=== PATIENT | female | born 2000 | race African-American/Black ===

== ENCOUNTER → 2019-06-30 | Outpatient (CLI) | payer OTHER ==
[~2019-06-30] VITALS: Ht 157.5 cm; Wt 69.0 kg
[~2019-06-30] MED LIST: LR 1,000 ML IV ONE; NITROFURANTOIN (MACROBID) 100 MG CAP PO ONE; PRENTAB9 PO
[2019-06-30 13:48] VITALS: BP 120/67
[2019-06-30 15:13] LABS: APPEARANCE, URINE CLOUDY (CLEAR); BACTERIA, URINE AUTO 2+ (NEGATIVE); BILIRUBIN, URINE AUTO NEGATIVE (NEGATIVE); BLOOD, URINE BLOOD 3+ (NEGATIVE); COLOR, URINE RED (YELLOW); GLUCOSE, URINE (UA) AUTO NEGATIVE (NEGATIVE); KETONE, URINE AUTO TRACE mg/dL (NEGATIVE); LEUKOCYTE ESTERASE, URINE AUTO 3+ (NEGATIVE); NITRITE, URINE AUTO NEGATIVE (NEGATIVE); PROTEIN, URINE AUTO 2+ mg/dL (NEGATIVE); RBC, URINE AUTO TNTC /HPF (0-3); SPECIFIC GRAVITY URINE AUTO 1.006 (1.002-1.035); SQUAMOUS EPITHELIAL CELL UR AU 0 /HPF (0-6); UROBILINOGEN, URINE AUTO 0.2 mg/dL (0.0-2.0); WBC, URINE AUTO TNTC /HPF (0-3)
[2019-06-30 15:19] VITALS: BP 105/55
== END ==
LOC: M LDO 13:39
PROVIDERS: ATTEND Advanced Practice Midwife
DX: O26.852 Spotting complicating pregnancy, second trimester (principal); O26.892 Other specified pregnancy related conditions, second trimester; R30.0 Dysuria; Z3A.22 22 weeks gestation of pregnancy
CPT/HCPCS: 59025; 81001; G0378; G0463

== ENCOUNTER 2019-10-30 10:18 | Inpatient (IN) | payer OTHER ==
[~2019-10-30] VITALS: Ht 157.5 cm; Wt 86.2 kg
[2019-10-30] VITALS (24 sets, daily range): BP systolic 115–167; BP diastolic 63–97
[~2019-10-30 10:18] MED LIST changes: -LR 1,000 ML IV ONE; -NITROFURANTOIN (MACROBID) 100 MG CAP PO ONE
[2019-10-30] MEDS ORDERED: LACTATED RINGER'S 1000 ML IV ONE (11:30)
[2019-10-30 11:51] LABS: HEMATOCRIT 40.2 % (36.0-47.0); MEAN CORPUSCULAR HEMOGLOBIN 27.4 pg (27.0-33.0); MEAN CORPUSCULAR HGB CONC 32.3 g/dl (32.0-36.5); MEAN CORPUSCULAR VOLUME 84.6 fl (80.0-96.0); PLATELET COUNT, AUTOMATED 251 10^3/uL (150-450); RED BLOOD COUNT 4.75 10^6/uL (4.00-5.40); WHITE BLOOD COUNT 12.9 10^3/uL (4.0-10.0)
[2019-10-30] MEDS ORDERED: FENTANYL 2MCG/ML ROPIVACAINE 0.2% IN 0.9% NACL 100ML IVBAG As Ordered ONE (12:46)
[2019-10-30] MEDS: LR 1,000 ML IV SCH ×2 (12:55→15:30)
[2019-10-30] MEDS ORDERED: REFRIGERATOR IV KEYS XX PRN (13:45)
[2019-10-30] MEDS ORDERED: ePHEDrine SULFATE 25 MG/5 ML(5MG/ML) SYRINGE IV PRN (13:45)
[2019-10-30] MEDS ORDERED: EPIDURAL/PCA KEYS XX PRN (13:45)
[2019-10-30] MEDS ORDERED: LACTATED RINGER'S 1000 ML IV PRN (13:45)
[2019-10-30] MEDS ORDERED: diphenhydrAMINE INJ 50MG/ML VIAL (J1200) IV PRN (13:45)
[2019-10-30] MEDS ORDERED: ONDANSETRON 4MG/2ML VIAL (J2405) IV PRN (13:45)
[2019-10-30] MEDS ORDERED: EPIDURAL COMMENT XX SCH (13:45)
[2019-10-30] MEDS ORDERED: NALOXONE INJ 0.4 MG/1 ML VIAL (J2310) IV PRN (13:45)
[2019-10-30] MEDS ORDERED: FENTANYL/ROPIVACAINE/NACL BAG 100 ML EPIDURAL SCH (13:45)
[2019-10-30] MEDS ORDERED: OXYTOCIN 30 UNITS IN 0.9% NaCl 500ML IV BAG (J2590) As Ordered ONE (15:00)
--- NOTE | 2019-10-30 16:07 | HPE ---
DATE OF ADMISSION: 10/30/2019 This lady is a 19-year-old 1, para 0, last menstrual period (LMP) 01/25/2019, estimated date of confinement (EDC) 11/01/2019 at 39 and 6 weeks of gestation with history of spontaneous rupture of membranes, clear liquor, contractions 2-4 minutes apart of moderate intensity. Labs are O positive, HIV negative, hepatitis negative, RPR negative, rubella immune, Varicella immune. Urine was negative. Gonorrhea and chlamydia are negative. One-hour glucose 103. GBS is negative. On examination, distressed female. Symphysis fundus height is 40, vertex occiput anterior (OA). Clear liquor, 1 cm, 100% effaced, anterior -3 station. Moderate intensity contractions. Category 1 strip. Blood pressure 115/79, respirations 18, pulse 95, and temperature 97.7, and there is no urine available. She has a category 1 strip. Normocephalic, atraumatic. Neck: Full range of motion. Pupils equal and reactive to light. Distal pulses symmetric. No evidence of deep vein thrombosis (DVT), pulmonary embolism (PE), or superficial phlebitis. Chest is clear bilaterally to bases. No wheezes or rhonchi. No costovertebral angle (CVA) tenderness. Four-quadrant bowel sounds are noted. No rashes, lesions, or pruritus. No tattoos. No arthralgia, myalgia. No complaint of joint pain. No complaint coughing, shortness of breath, or dyspnea on exertion. No bleeding. Neurologic complete. No urgency, frequency. No nausea, vomiting, diarrhea, or constipation. No diabetic issues. She has no GRAIN SPOUTER issues. Unremarkable past medical and surgical history. Family history is noncontributory. She does not smoke, drink abuse drugs. She is . No domestic violence. Has good support. We discussed the consent for vaginal delivery, which of delivery of the baby through the vagina with possible assistance of forceps or vacuum devices if needed for maternal and indications. Forceps or vacuum device that can assist with vaginal delivery when normal pushing efforts cannot achieve a delivery on their own or when delivery is needed in emergency for baby's well-being. Medications may use to induce or augment labor in order to achieve vaginal delivery. An episiotomy may be required to help baby deliver vaginally. You may also sustain and require repair of any lacerations or tears of the vagina or vulva that are caused by vaginal delivery. In some cases, emergencies can arise that require emergency section. They are done for maternal or indications. They will be discussed with the provider cable television line technician before going back for the section. section sometimes is safer for mom and baby than continuing labor and only performed when clinically indicated. Risks of vaginal delivery include, but not limited to, bleeding, infection, injury to the vagina, pelvic structures, injury to the baby, damage to the uterus, reaction to anesthesia, uterine rupture, risk of hysterectomy for life-threatening bleeding situations. Medications used to induce or augment labor may possibly lead to increase , hysterectomy, hemorrhage, uterine tachysystole, infection, uterine rupture, heart rate abnormalities. The use of vacuum forceps, again, is for indicated reasons, and there may be scratches, hematomas of the head, or intracranial bleeding of the baby. The patient expressed understanding of risks and benefits and was safe to proceed. A 25-minute discussion of plan of care.
[2019-10-30 16:33] LABS: CORD GAS ABE A -5.9; CORD GAS HCO3 A 22.7 MEQ/L; CORD GAS O2 SAT A 37.1 %; CORD GAS PCO2 A 56.4 mmHg; CORD GAS PH A 7.222 UNITS; CORD GAS PO2 A 22.4 mmHg; CORD GAS SBC A 18.2 MEQ/L; CORD GAS TCO2 A 24.4 MEQ/L
[2019-10-30 16:35] LABS: CORD GAS ABE V -4.9; CORD GAS HCO3 V 20.4 MEQ/L; CORD GAS O2 SAT V 74.2 %; CORD GAS PCO2 V 39.1 mmHg; CORD GAS PH V 7.335 UNITS; CORD GAS PO2 V 35.2 mmHg; CORD GAS SBC V 19.9 MEQ/L; CORD GAS TCO2 V 21.6 MEQ/L
[2019-10-30] MEDS ORDERED: ANUSOL HC CREAM 30GM TOP PRN (17:00)
[2019-10-30] MEDS ORDERED: OXYTOCIN INJ 10 UNITS/ML VIAL (J2590) IV ONE (17:00)
[2019-10-30] MEDS ORDERED: DOCUSATE SODIUM 100 MG CAP PO PRN (17:00)
[2019-10-30] MEDS ORDERED: DIBUCAINE 1% OINTMENT 30GM TOP PRN (17:00)
[2019-10-30] MEDS ORDERED: ACETAMINOPHEN TAB 650MG DOSE (2X325MG) PO PRN (17:00)
[2019-10-30] MEDS ORDERED: MEASLES,MUMPS,RUBELLA VACCINE INJ (MMR-II) (90707) SC SCH (17:00)
[2019-10-30] MEDS ORDERED: MOM 30ML SUSPENSION UDC PO PRN (17:00)
[2019-10-30] MEDS ORDERED: RHOGAM 300 MCG (1500 IU) INJ (J2790) IM SCH (17:00)
[2019-10-30] MEDS ORDERED: IBUPROFEN 600 MG TAB PO PRN (17:00)
[2019-10-30] MEDS ORDERED: ACETAMINOPHEN 500 MG TAB PO PRN (17:00)
[2019-10-30] MEDS ORDERED: METHYLERGONOVINE MALEATE 0.2 MG TAB PO PRN (17:00)
[2019-10-30] MEDS ORDERED: OXYTOCIN DRIP 30 UNITS in IV 1 EA IV SCH (17:15)
--- NOTE | 2019-10-30 18:11 | IPN ---
DATE: 10/30/2019 at 1500 Reviewing the patient's monitor strip, noted there was a prolonged episode of bradycardia with moderate contractions. Not on any Pitocin. Examination reveals this lady is fully dilated at a 0 station with some moulding, which is probably the etiology behind the bradycardia. There was rapid progression from 1 cm to 5 cm to fully. No evidence of vaginal bleeding. Uterus appears to be not tachysystole and query possibly a concealed abruption; however, there is no evidence of active bleeding. Presently on oxygen, IV fluids, and positional change. heart is remaining within normal limits. We are going to allow her to labor down as much as we can until there is a necessity for active intervention for delivery. Will reassess every 15 minutes.
--- NOTE | 2019-10-30 22:24 | IPN ---
DATE: 10/30/2019 This lady is a 1, para 0, admitted with history of a question of spontaneous rupture of membranes and active labor. She had an epidural in place. Reassessment after indicated she was 5-6 cm dilated. We could not demonstrate any fluid at all. Vertex was presenting. Some moulding was noted. The presenting part was not well applied to the cervix. Contractions were moderate intensity. Category 1 strip at that time. The patient is not on the Pitocin and does not require any the present time. We will monitor over the next 2-3 hours.
[2019-10-31 06:00] VITALS: BP 123/72
[2019-10-31 06:23] LABS: HEMATOCRIT 38.7 % (36.0-47.0); HEMOGLOBIN 12.2 g/dl (12.0-15.5); MEAN CORPUSCULAR HEMOGLOBIN 26.9 pg (27.0-33.0); MEAN CORPUSCULAR HGB CONC 31.5 g/dl (32.0-36.5); MEAN CORPUSCULAR VOLUME 85.4 fl (80.0-96.0); PLATELET COUNT, AUTOMATED 224 10^3/uL (150-450); RED BLOOD COUNT 4.53 10^6/uL (4.00-5.40); WHITE BLOOD COUNT 17.6 10^3/uL (4.0-10.0)
[2019-10-31] MEDS ORDERED: OXYTOCIN INJ 10 UNITS/ML VIAL (J2590) As Ordered ONE (07:43)
--- NOTE | 2019-10-31 08:52 | IPNPDOC ---
Progress Note Date of Service: Oct 31, 2019 Day#: 1 Progress Note SUBJECT:patient is a 19 yo S/P PPD #1. Patient without concerns today. She has been ambulating, voiding spontaneously without issue and tolerating regular diet. Breast feeding without issue. Reports lochia is like a normal period. undecided on contraceptive at this point. OBJECTIVE: VITAL SIGNS: Within normal limits, afebrile. Alert and oriented times three. Abdomen: Fundus firm at U-2. Soft, NTTP. A/P patient is ppd #1, doing well. contraceptive counseling. encourage bf. continue routine ppc. anticipate d/c home tomorrow. Elvia, VS, I&O, 24H, Fishbone Vital Signs/I&O Vital Signs Date Time Temp Pulse Resp B/P (MAP) Pulse Ox O2 Delivery O2 Flow Rate FiO2 10/31/19 06:00 98.6 95 16 123/72 (89) 95 Room Air I&O- Last 24 Hours up to 6 AM 10/31/19 06:00 Intake Total 3080 ml Output Total 1850 ml Balance 1230 ml Laboratory Data 24H LABS Laboratory Tests 2 10/30/19 11:36: Nucleated Red Blood Cells % (auto) 0.0, Syphilis Serology NONREACTIVE 10/30/19 11:46: Serology Scanned Report Hepatitis B Testing 10/30/19 16:21: Cord Arterial Blood pH 7.222, Cord Arterial Blood PCO2 56.4, Cord Arterial Blood PO2 22.4, Cord Arterial Blood HCO3 22.7, Cord Arterial Blood Total CO2 24.4, Cord Arterial Blood Base Excess -5.9, Cord Arterial Base Excess (Standard 18.2, Cord Arterial Bld Oxygen Saturation 37.1, Cord Venous Blood pH 7.335, Cord Venous Blood PCO2 39.1, Cord Venous Blood PO2 35.2, Cord Venous Blood HCO3 20.4, Cord Venous Blood Total CO2 21.6, Cord Venous Base Excess (Actual) -4.9, Cord Venous Base Excess (Standard) 19.9, Cord Venous Blood Oxygen Saturation 74.2 10/31/19 06:11: Nucleated Red Blood Cells % (auto) 0.0 CBC/BMP Laboratory Tests 10/30/19 11:36 10/31/19 06:11 LUIS ALFREDO BERMUDEZ DO Oct 31, 2019 08:52
[2019-10-31 09:00] VITALS: BP 113/72
[2019-10-31] MEDS ORDERED: PRENATAL VITAMINS CHEWABLE TABLET PO SCH (09:00)
[2019-10-31] MEDS: IBUPROFEN 800 MG TAB PO PRN (12:03)
[2019-10-31 17:51] VITALS: BP 127/71
--- NOTE | 2019-10-31 18:16 | DN ---
DATE: 10/30/2019 DELIVERY NOTE: This is a 1, para 0 at 39 and 6 admitted in active labor, query spontaneous rupture of membranes. She had an epidural in place. She rapidly dilated up to full dilatation, pushed out over an intact perineum a live female infant weighing 7 pounds 5 ounces, 3310 grams, scores of 8 and 9 at 1 and 5 minutes respectively. Arterial pH 7.22, base excess -5.9, venous pH 7.33, base excess -4.9. Cord was around the neck times one. No meconium was noted or abruptio placenta. Placenta delivered spontaneously thereafter. Three-vessel cord. Membranes and tissues intact. The patient and baby tolerated procedure well. Reviewed the vagina, anterior, posterior, and lateral yu were intact. Sphincter was tight. No tears or lacerations were noted. Again, the uterus contracted well down on Pitocin. Estimated blood loss 200 mL.
[2019-11-01 00:06] VITALS: BP 119/79
[2019-11-01] MEDS: IBUPROFEN 800 MG TAB PO PRN (02:51)
--- NOTE | 2019-11-01 07:22 | IPNPDOC ---
Progress Note Date of Service: Nov 01, 2019 Day#: 2 Progress Note SUBJECT:patient is a 19 yo S/P PPD #2. Patient without concerns today. She has been ambulating, voiding spontaneously without issue and tolerating regular diet. Breast feeding without issue. Reports lochia is like a normal period. undecided on contraceptive at this point. OBJECTIVE: VITAL SIGNS: Within normal limits, afebrile. Alert and oriented times three. Abdomen: Fundus firm at U-2. Soft, NTTP. A/P patient is ppd #2, doing well. encourage bf. continue routine ppc. discharge instructions given. d/c today. DO Elvia VS, I&O, 24H, Fishbone Vital Signs/I&O Vital Signs Date Time Temp Pulse Resp B/P (MAP) Pulse Ox O2 Delivery O2 Flow Rate FiO2 11/01/19 00:06 98.1 85 18 119/79 (92) 98 Room Air LUIS ALFREDO BERMUDEZ DO Nov 01, 2019 07:21
--- NOTE | 2019-11-01 07:23 | OBDS ---
[facility] Obstetrical Discharge Sum. Obstetrical Discharge Summary Meter Reader Inspector/Provider: LUIS ALFREDO BERMUDEZ DO Date: Nov 01, 2019 : 1 Term: 1 Pre-term: 0 Abortions: 0 Livin VDRL: Non-Reactive Rh: Positive Rubella: Immune Infant Sex: Female Infant Weight: pounds (7), ounces (5), grams (3310) Anesthesia: Regional Anesthesia A/P, Post Course List any complications Admission diagnosis: Gravid at 39+5wks SROM Discharge diagnosis: Condition at Discharge: stable Discharge Instructions: Home Activity: as tolerated Diet: regular Medications: filled Follow-up: 6wks Hospital Course: Patient admitted at 39+5wks gestation for spontanous rupture of membranes. She progressed to have a spontaneous vaginal delivery. course uncomplicated and patient discharged on day #2. LUIS ALFREDO BERMUDEZ DO Oct 31, 2019 14:47
== END 2019-11-01 13:10 | disposition home or self-care (01) | DRG 807 ==
LOC: M LDO 10:18 → M LDI 11:20 → M OBS 19:15
PROVIDERS: ADMIT Obstetrics & Gynecology; ATTEND Obstetrics & Gynecology
PROC: 10E0XZZ Delivery of Products of Conception, External Approach (ICD-10-PCS; principal; 2019-10-30)
DX: O69.81X0 Labor and delivery complicated by cord around neck, without compression, not applicable or unspecified (principal); Z37.0 Single live birth; Z3A.39 39 weeks gestation of pregnancy

== ENCOUNTER 2019-12-20 21:28 | Emergency (ER) | payer OTHER ==
[~2019-12-20] VITALS: Ht 157.5 cm; Wt 75.5 kg
[2019-12-20 22:24] LABS: INFLUENZA A AMPLIFICATION NEGATIVE (NEGATIVE); INFLUENZA B AMPLIFICATION NEGATIVE (NEGATIVE)
[2019-12-20 22:35] VITALS: BP 120/70
== END 2019-12-20 22:43 | disposition home or self-care (01) ==
LOC: M ED 21:28
DX: R05 Cough (principal); J02.0 Streptococcal pharyngitis

== ENCOUNTER 2019-12-23 16:32 | Emergency (ER) | payer OTHER ==
[~2019-12-23] VITALS: Ht 157.5 cm; Wt 79.1 kg
[2019-12-23 17:51] LABS: INFLUENZA A AMPLIFICATION NEGATIVE (NEGATIVE); INFLUENZA B AMPLIFICATION NEGATIVE (NEGATIVE)
[2019-12-23] MEDS ORDERED: BENZONATATE 100 MG CAP PO ONE (18:00)
[2019-12-23] MEDS ORDERED: ALBUTEROL SULFATE 2.5 MG/0.5 ML INH NEB SOLN NEB ONE (18:00)
--- NOTE | 2019-12-23 18:26 | REP ---
PA and lateral chest: There are no comparisons. The lung romeo are clear. The cardiac size is normal. The gael, mediastinum, and skeletal structures are unremarkable. Impression: Negative PA and lateral chest. Electronically Signed by Be Rae MD 12/23/2019 06:18 P
[2019-12-23 18:34] VITALS: BP 142/58
[2019-12-23] MEDS ORDERED: PROAAER10 INH (18:55)
[2019-12-23] MEDS ORDERED: TESS100C PO (18:55)
[2019-12-23] MEDS ORDERED: NAPR-837 PO (18:55)
[2019-12-23] MEDS ORDERED: LIDO1CRE2 TOP (19:03)
== END 2019-12-23 19:00 | disposition home or self-care (01) ==
LOC: M ED 16:32
DX: J06.9 Acute upper respiratory infection, unspecified (principal)

== ENCOUNTER 2020-01-08 01:00 | Emergency (ER) | payer OTHER ==
[~2020-01-08] VITALS: Ht 157.5 cm; Wt 75.5 kg
[~2020-01-08 01:00] MED LIST changes: +LIDO1CRE2 TOP; +NAPR-837 PO; +PROAAER10 INH; +TESS100C PO
[2020-01-08] MEDS ORDERED: ONDANSETRON 4 MG ORAL DISINTEGRATING TAB (Q0162 PER 1MG) PO ONE (02:45)
[2020-01-08] MEDS ORDERED: ONDA4TAB6 PO (03:46)
[2020-01-08 04:34] VITALS: BP 113/79
== END 2020-01-08 04:34 | disposition home or self-care (01) ==
LOC: M ED 01:00
DX: K52.9 Noninfective gastroenteritis and colitis, unspecified (principal)
CPT/HCPCS: 99283; Q0162

== ENCOUNTER 2020-04-14 14:33 | Emergency (ER) | payer OTHER ==
[~2020-04-14] VITALS: Ht 160 cm; Wt 76.4 kg
[~2020-04-14 14:33] MED LIST changes: +ONDA4TAB6 PO
[2020-04-14 17:00] VITALS: BP 126/77
== END 2020-04-14 17:02 | disposition home or self-care (01) ==
LOC: M ED 14:33 → EDBD 14:33 → M ED 17:02
DX: F41.9 Anxiety disorder, unspecified (principal)

== ENCOUNTER 2020-10-03 07:13 | Outpatient (CLI) | payer OTHER ==
[~2020-10-03] VITALS: Ht 160 cm; Wt 87.0 kg
[2020-10-03 07:42] VITALS: BP 116/59
[2020-10-03 09:28] VITALS: BP 97/53
[2020-10-03 11:26] VITALS: BP 118/66
== END 2020-10-03 12:00 | disposition home or self-care (01) ==
LOC: M LDO 07:13
PROVIDERS: ATTEND Registered Nurse
DX: O26.893 Other specified pregnancy related conditions, third trimester (principal); R10.2 Pelvic and perineal pain; Z3A.35 35 weeks gestation of pregnancy
CPT/HCPCS: 59025; G0378; G0463

== ENCOUNTER 2020-11-02 08:14 | Inpatient (IN) | payer OTHER ==
[2020-11-02] VITALS (9 sets, daily range): BP systolic 115–136; BP diastolic 57–74
[~2020-11-02] VITALS: Ht 157.5 cm; Wt 87.0 kg
[2020-11-02] MEDS ORDERED: PENICILLIN G POTASSIUM IV 5 MU in D5W MINI-BAG PLUS 100 ML IV STA (08:45)
[2020-11-02] MEDS ORDERED: LACTATED RINGER'S 1000 ML IV STA (08:45)
[2020-11-02] MEDS ORDERED: LR 1,000 ML IV SCH (08:45)
[2020-11-02] MEDS ORDERED: OXYTOCIN 30 UNITS IN 0.9% NaCl 500ML IV BAG (J2590) As Ordered ONE (09:18)
[2020-11-02] MEDS ORDERED: OXYTOCIN DRIP 30 UNITS in IV 1 EA IV SCH (09:35)
[2020-11-02 09:43] LABS: HEMATOCRIT 39.2 % (36.0-47.0); HEMOGLOBIN 12.1 g/dl (12.0-15.5); MEAN CORPUSCULAR HEMOGLOBIN 24.9 pg (27.0-33.0); MEAN CORPUSCULAR HGB CONC 30.9 g/dl (32.0-36.5); MEAN CORPUSCULAR VOLUME 80.7 fl (80.0-96.0); PLATELET COUNT, AUTOMATED 264 10^3/uL (150-450); RED BLOOD COUNT 4.86 10^6/uL (4.00-5.40); WHITE BLOOD COUNT 13.2 10^3/uL (4.0-10.0)
[2020-11-02] MEDS ORDERED: METHYLERGONOVINE MALEATE 0.2 MG TAB PO PRN (09:45)
[2020-11-02] MEDS ORDERED: MEASLES,MUMPS,RUBELLA VACCINE INJ (MMR-II) (90707) SC SCH (09:45)
[2020-11-02] MEDS ORDERED: RHOGAM 300 MCG (1500 IU) INJ (J2790) IM SCH (09:45)
[2020-11-02] MEDS ORDERED: DOCUSATE SODIUM 100MG CAPSULE PO PRN (09:45)
[2020-11-02] MEDS ORDERED: BENZOCAINE 20% HEMORRHOIDAL OINTMENT 28GM TUBE TOP PRN (09:45)
[2020-11-02] MEDS ORDERED: ACETAMINOPHEN TAB 650MG DOSE (2X325MG) PO PRN (09:45)
--- NOTE | 2020-11-02 10:52 | HPEPDOC ---
Obstetrical History & Physical General Date of Admission Nov 02, 2020 at 08:43 History of Present Illness c/o labor at term with contractions starting at 0400 Chief Complaint: Contractions, term Information Provided By: Patient Age: 20 : 2 Term: 1 Pre-term: 0 Abortions: 0 Livin Care Care: Limited Care Dating Final EDC: Nov 04, 2020 Final EDC for Daily Update: Nov 04, 2020 Final EDC by: LMP LMP: Jan 29, 2020 EGA at Admission: 39 (+5) Antepartum Course Diagnos(e)s late care, closely spaced , excessive weight gain, overweight Height (inches): 62 Pre- weight (lbs.): 148 Admission Weight (lbs.): 190 Change in Weight (lbs.): 42 Past Medical History Past Obstetrical History : Past Obstetrical History: Multigravida Date of Delivery: Oct 30, 2019 Gestation: 40 Type of Delivery: Spontaneous Vaginal Del. 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 Past Medical History Medical History denies Surgical History: Denies/None Family History Significant Family History: No pertinent family hx Social History Marital Status: Single Family situation: Spouse/partner home Psychosocial History: No pertinent psych hx * Smoker: non-smoker Alcohol: Denies Drugs: denies Abuse Violence Screening Have you been hit/kicked/slapp: No Have you been sexually assault: No Imunizations Tdap status: current Influenza Status: needs Allergies Coded Allergies: No Known Allergies (Unverified , 06/30/19) Medications Scheduled No.137/Iron/Folic Acd ( Vitamin Tablet) 1 Each Tablet, 1 TAB PO DAILY Physical Examination Physical Examination GENERAL: Alert and oriented times three. BREAST: . ABDOMEN: Gravid and non-tender to touch. FETUS: Is vertex (VTX) by sterile vaginal examination (SVE), fetus is vertex (VTX) by Norm. HEART RATE: Regular rate and rhythm. LUNGS: Clear to auscultation (CTA). EXTREMITIES: No edema. No clonus. Laboratory Data 24H LABS Laboratory Tests 2 11/02/20 08:52: Serology Scanned Report Hepatitis B Testing 11/02/20 09:24: Nucleated Red Blood Cells % (auto) 0.0 CBC/BMP Laboratory Tests 11/02/20 09:24 Pertinent Laboratoy Data Blood Type: O+ RBC Antibody Screen: Negative HIV: Negative Hepatitis B: Negative Rapid Plasma Reagin: Nonreactive Rubella: Immune Varicella: Immune Chlamydia/Gonorrhea: Negative Group B Streptococcus: Positive (by urine) Glucose Tolerance Test: 94 Anatomy Ultrasound Placenta Location: Posterior Normal Anatomy: Yes Placenta Previa: No Steroid Therapy Steroid Therapy: No Vaginal Examination Dilation: 8 cm Effacement: 100% Station: 0 Cervical Consistency: Soft Cervical Position: Middle Presentation: Cephalic presentation Assessment Variability: Moderate Accelerations: Positive Decelerations: None Tocometer Contractions: Yes Frequency: regular, every 2-2 min. Duration: greater than 60 seconds Strength: palpated as strong, resting tone palp/soft Multi-drug resistant Organism: No history of MDRO Assessment/Plan Assessment Joycelyn is a 20-year-old (G)2 para (P)1-0-0-1 at 39+5 weeks by LMP. Presents to Labor and Delivery (L&D) in active labor at term. Plan Admit and orient. Hospitality Job Titles and consent for labor and delivery and blood products. Diet: clear. Group B Streptococcus (GBS) positive, initiate GBS prophylaxis. Labs and intravenous (IV) per unit protocol. Lactated Ringers (LR): Bolus 1000 mL, then at 125 mL/hr. May have epidural as desired. Continuous efm x2, monitor for change in or maternal status, evaluate for change as indicated. Anticipate [normal spontaneous delivery ()]. PAULA DONATO CNM Nov 02, 2020 10:52
--- NOTE | 2020-11-02 11:06 | DNPDOC ---
[facility] Delivery Note Delivery Note DATE OF DELIVERY: 02Nov2020 PREDELIVERY DIAGNOSIS: 39-5/7 weeks' gestation and labor. POST DELIVERY DIAGNOSIS: Delivered. PROCEDURE: Spontaneous vaginal delivery. HISTOPATHOLOGIST: Juli Donato CNM ANESTHESIA: none. ESTIMATED BLOOD LOSS: 250 mL. FINDINGS: 7 pound 13 ounce male infant Nathanael, Score 9/9, no nuchal cord. DELIVERY SUMMARY: Patient Joycelyn is a 20-year-old 2 now para 2 who was admitted to labor and delivery for active labor at term. Patient called out with urge to push during admission assessment and was found to be c/c/0 with a BBOW. Brisk decent was noted with maternal pushing efforts. SROM clear at +4 station. The head delivered in OA with restitution to VELASQUEZ. The left compound hand was noted and posterior arm spontaneously delivered easily followed by the anterior right shoulder and corpus over an intact perineum. he vigorous male infant was placed immediately skin to skin on the maternal abdomen where he was dried and stimulated. The cord was clamped x 2 after pulsation ceased and cut by the FOB. Cord blood was collected and sent for testing. Pitocin infusion was initiated per protocol. The placenta delivered spontaneously in mohit presentation with small bleeding and trailing membranes. A sweep of the cervix and vagina was completed for several small clots adn a portion of membrane. The fundus was massaged until firm and bleeding slowed appropriately. Examination revealed a hemostatic left labial abrasion which did not require repair. Mother and baby entered the recovery phase in stable condition. JULI DONATO CNM Nov 02, 2020 11:06
[2020-11-02] MEDS: PRENATAL VITAMINS CHEWABLE TABLET PO SCH (11:51)
[2020-11-02] MEDS ORDERED: PENICILLIN G POTASSIUM IV 2.5 MU in IV 1 EA IV SCH (13:00)
[2020-11-02] MEDS: IBUPROFEN 800 MG TAB PO PRN (19:44)
[2020-11-03 05:47] VITALS: BP 119/57
--- NOTE | 2020-11-03 08:14 | IPNPDOC ---
Progress Note Date of Service: Nov 03, 2020 Progress Note Ms. Minor is a 20 yo G2 now P2 who underwent an uncomplicated yesterday morning after being admitted for active labor shortly beforehand. No issues overnight. Ms. Minor reports feeling well this morning. She is ambulating, voiding, tolerating a regular diet, and has minimal lochia. VSS, afebrile, normotensive Abdomen: Fundus firm at U-2. No fundal tenderness Extremities: no edema Ms. Minor is doing well and is making an appropriate recovery. Plan for dc home tomorrow. DO Luis Antonio VS, I&O, 24H, Fishbone Vital Signs/I&O Vital Signs Date Time Temp Pulse Resp B/P (MAP) Pulse Ox O2 Delivery O2 Flow Rate FiO2 11/03/20 05:47 99.0 79 16 119/57 (77) 98 Room Air I&O- Last 24 Hours up to 6 AM 11/03/20 06:00 Intake Total 882 ml Output Total 650 ml Balance 232 ml Laboratory Data 24H LABS Laboratory Tests 2 11/02/20 08:52: Serology Scanned Report Hepatitis B Testing 11/02/20 09:24: Nucleated Red Blood Cells % (auto) 0.0, Syphilis Serology NONREACTIVE CBC/BMP Laboratory Tests 11/02/20 09:24 YVES NIXON DO Nov 03, 2020 08:14
[2020-11-03] MEDS: PRENATAL VITAMINS CHEWABLE TABLET PO SCH (08:16)
[2020-11-03] MEDS ORDERED: INFLUENZA QUADRIVALENT PF VACCINE 0.5ML SYRINGE IM ONE (09:00)
[2020-11-03] MEDS: IBUPROFEN 800 MG TAB PO PRN (15:28)
[2020-11-03 17:49] VITALS: BP 121/62
[2020-11-04 05:59] VITALS: BP 140/83
[2020-11-04] MEDS: PRENATAL VITAMINS CHEWABLE TABLET PO SCH (07:31)
--- NOTE | 2020-11-04 08:25 | DS.PDOC ---
Discharge Summary General Date of Admission Nov 02, 2020 at 08:43 Date of Discharge 11/04/2020 Primary Care Physician: YVES NIXON DO Attending Physician: Rajan Barrow MD Discharge Summary PROCEDURES PERFORMED DURING STAY: [None]. ADMITTING DIAGNOSES: 1. labor DISCHARGE DIAGNOSES: 1.DELIVERED COMPLICATIONS/CHIEF COMPLAINT: LABOR. HISTORY OF PRESENT ILLNESS:contractions HOSPITAL COURSE: uneventful DISCHARGE MEDICATIONS: Please see below. ALLERGIES: Please see below. PHYSICAL EXAMINATION ON DISCHARGE: VITAL SIGNS: Please see below. GENERAL: well HEENT: normal NECK: thyroid normal no JVD CARDIOVASCULAR EXAMINATION: STABLE RESPIRATORY EXAMINATION: CLEAR TO BASES ABDOMINAL EXAMINATION: UTERUS 2 BELOW BOWEL SOUNDS 4 QUADRANTS EXTREMITIES: NO EDEMA SKIN: NO RASHES LESIONS OR PURITIS NEUROLOGICAL EXAMINATION: NORMAL PSYCHIATRIC EXAMINATION: LABORATORY DATA: Please see below. IMAGING: PROGNOSIS: WELL ACTIVITY: [As tolerated]. 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 DISCHARGE INSTRUCTIONS: 1. GIVEN ITEMS TO FOLLOWUP ON ON OUTPATIENT: 1. . DISCHARGE CONDITION: [Stable]. TIME SPENT ON DISCHARGE: Greater than 20 minutes. Vital Signs/I&Os Vital Signs Date Time Temp Pulse Resp B/P (MAP) Pulse Ox O2 Delivery O2 Flow Rate FiO2 11/04/20 05:59 98.0 80 16 140/83 (102) 99 Room Air Discharge Medications Scheduled No.137/Iron/Folic Acd ( Vitamin Tablet) 1 Each Tablet, 1 TAB PO DAILY, (Reported) Allergies Coded Allergies: No Known Allergies (Unverified , 06/30/19) Rajan Barrow MD Nov 04, 2020 08:24
[2020-11-04] MEDS ORDERED: DOK1CAP7 PO (08:28)
[2020-11-04] MEDS ORDERED: IBUP80TA PO (08:28)
--- NOTE | 2020-11-07 08:34 | IPN ---
PROGRESS NOTE DATE: 11/03/2020 This patient's requested circumcision of their male infant. After discussing risks and benefits of circumcision, the medical and the nonmedical indications, the penile block and aftercare, expressed understanding of penile block, aftercare, and bleeding. Signed the consent form. All questions were answered, 20 minute discussion. We await clearance by the envelope cutter.
== END 2020-11-04 12:20 | disposition home or self-care (01) | DRG 764 ==
LOC: M LDO 08:14 → M LDI 08:43 → M OBS 11:40
PROVIDERS: ADMIT Registered Nurse; ATTEND Registered Nurse
PROC: 10D17ZZ Extraction of Products of Conception, Retained, Via Natural or Artificial Opening (ICD-10-PCS; principal; 2020-11-02)
PROC: 10E0XZZ Delivery of Products of Conception, External Approach (ICD-10-PCS; 2020-11-02)
DX: O99.824 Streptococcus B carrier state complicating childbirth (principal); Z37.0 Single live birth; Z3A.39 39 weeks gestation of pregnancy; O32.6XX0 Maternal care for compound presentation, not applicable or unspecified; O73.1 Retained portions of placenta and membranes, without hemorrhage

== ENCOUNTER 2021-07-11 18:13 | Emergency (ER) | payer OTHER ==
[~2021-07-11] VITALS: Ht 157.5 cm; Wt 72.3 kg
[~2021-07-11 18:13] MED LIST changes: +DOK1CAP4 PO; +IBUP80TA PO
[2021-07-11] MEDS ORDERED: MULTTAB20 PO (18:39)
[2021-07-11] MEDS ORDERED: NS 1,000 ML IV ONE (18:55)
[2021-07-11] MEDS ORDERED: ACETAMINOPHEN 325 MG TAB PO ONE (19:05)
[2021-07-11 20:18] LABS: BASO % 0.2 % (0.0-1.0); EOS # 0.1 10^3/uL (0.0-0.5); EOS % 0.6 % (0.0-3.0); HEMATOCRIT 35.1 % (36.0-47.0); HEMOGLOBIN 11.1 g/dl (12.0-15.5); LYMPH # 2.1 10^3/uL (1.5-5.0); LYMPH % 17.6 % (24.0-44.0); MEAN CORPUSCULAR HEMOGLOBIN 25.2 pg (27.0-33.0); MEAN CORPUSCULAR HGB CONC 31.6 g/dl (32.0-36.5); MEAN CORPUSCULAR VOLUME 79.8 fl (80.0-96.0); MONO # 0.4 10^3/uL (0.0-0.8); MONO % 3.4 % (2.0-8.0); NEUTROPHILS # 9.3 10^3/uL (1.5-8.5); NEUTROPHILS % 77.8 % (36.0-66.0); PLATELET COUNT, AUTOMATED 250 10^3/uL (150-450); WHITE BLOOD COUNT 11.9 10^3/uL (4.0-10.0)
[2021-07-11 20:41] LABS: ALBUMIN 2.8 GM/DL (3.2-5.2); ALT/SGPT 16 U/L (12-78); BILIRUBIN,TOTAL 0.2 MG/DL (0.2-1.0); BLOOD UREA NITROGEN 7 MG/DL (7-18); CALCIUM LEVEL 8.4 MG/DL (8.5-10.1); CARBON DIOXIDE LEVEL 24 MEQ/L (21-32); CHLORIDE LEVEL 108 MEQ/L (98-107); CK-MB VALUE MASS < 1.0 NG/ML (<3.6); CPK CREATINE PHOSPHOKINASE 84 U/L (26-192); CREATININE FOR GFR 0.59 MG/DL (0.55-1.30); GLOMERULAR FILTRATION RATE > 60.0 (>60); GLUCOSE, FASTING 91 MG/DL (70-100); MB/CK RELATIVE INDEX 1.19 (< OR =4); POTASSIUM SERUM 3.5 MEQ/L (3.5-5.1); SODIUM LEVEL 140 MEQ/L (136-145); TOTAL PROTEIN 5.8 GM/DL (6.4-8.2); TROPONIN I < 0.02 NG/ML (< 0.10)
[2021-07-11 20:54] LABS: RSV AMPLIFICATION NEGATIVE (NEGATIVE)
[2021-07-11] MEDS ORDERED: CEPH500C PO ×2 (22:34→22:39)
[2021-07-11 22:50] VITALS: BP 116/60
--- NOTE | 2021-07-12 07:20 | ECGEPIP ---
[facility] - ED Test Date: 2021-07-11 Pat Name: SHREYAS CACERES Department: Room: - Gender: Female Clinical Biochemist: ROXANNA : 2000 Requested By: FERNANDO Velázquez PA-C Order Number: [id number] Reading MD: Wagner Ricks Measurements Intervals [place] Rate: 72 P: 54 AL: 178 QRS: 40 QRSD: 90 T: 25 QT: 396 QTc: 433 Interpretive Statements Normal sinus rhythm with sinus arrhythmia POOR R WAVE PROGRESSION NSTTW ABNORMALITY(S) NO PRIORS FOR COMPARISON Electronically Signed on 07-12-2021 7:20:31 EDT by Wagner Ricks
== END 2021-07-11 22:54 | disposition home or self-care (01) ==
LOC: EDBD 18:13 → M ED 18:13
DX: E86.0 Dehydration (principal); R82.71 Bacteriuria; Z3A.14 14 weeks gestation of pregnancy

== ENCOUNTER 2021-12-20 08:20 | Emergency (ER) | payer OTHER ==
[~2021-12-20] VITALS: Ht 157.5 cm; Wt 88.2 kg
[~2021-12-20 08:20] MED LIST changes: +CEPH500C PO; +MULTTAB20 PO
[2021-12-20 08:30] VITALS: BP 132/68
== END 2021-12-20 09:37 | disposition admitted as inpatient to this hospital (09) ==
LOC: EDBD 08:20 → M ED 08:58
DX: Z04.1 Encounter for examination and observation following transport accident (principal); V49.59XA Passenger injured in collision with other motor vehicles in traffic accident, initial encounter; Y92.410 Unspecified street and highway as the place of occurrence of the external cause; R10.32 Left lower quadrant pain; O98.513 Other viral diseases complicating pregnancy, third trimester; U07.1 COVID-19; Z3A.38 38 weeks gestation of pregnancy

== ENCOUNTER 2021-12-20 09:25 | Outpatient (CLI) | payer OTHER ==
[2021-12-20 09:31] VITALS: BP 120/66
== END 2021-12-20 13:52 | disposition home or self-care (01) ==
LOC: M LDO 09:25
PROVIDERS: ATTEND Registered Nurse
DX: O9A.213 Injury, poisoning and certain other consequences of external causes complicating pregnancy, third trimester (principal); Z3A.38 38 weeks gestation of pregnancy; S20.219A Contusion of unspecified front wall of thorax, initial encounter; V89.2XXA Person injured in unspecified motor-vehicle accident, traffic, initial encounter; O98.513 Other viral diseases complicating pregnancy, third trimester; U07.1 COVID-19; X58.XXXA Exposure to other specified factors, initial encounter; Y92.9 Unspecified place or not applicable
CPT/HCPCS: 59025; 99284; G0378; G0463

== ENCOUNTER 2022-01-05 11:43 | Inpatient (IN) | payer OTHER ==
[~2022-01-05] VITALS: Ht 157.5 cm; Wt 95.6 kg
[2022-01-05] VITALS (28 sets, daily range): BP systolic 105–133; BP diastolic 52–95
[2022-01-05] MEDS ORDERED: HOME MED LIST COMPLETE! XX SCH (12:10)
[2022-01-05] MEDS ORDERED: OXYTOCIN DRIP 30 UNITS in IV 1 EA IV PRN ×4 (15:05)
[2022-01-05] MEDS ORDERED: OXYTOCIN INJ 10 UNITS/ML VIAL (J2590) IV PRN (15:05)
[2022-01-05] MEDS ORDERED: METHYLERGONOVINE MALEATE 0.2 MG/ML VIAL (J2210) IM PRN (15:05)
[2022-01-05] MEDS ORDERED: LACTATED RINGER'S 1000 ML IV ONE (15:05)
[2022-01-05 15:31] LABS: HEMATOCRIT 38.5 % (36.0-47.0); HEMOGLOBIN 12.4 g/dl (12.0-15.5); MEAN CORPUSCULAR HEMOGLOBIN 25.8 pg (27.0-33.0); MEAN CORPUSCULAR HGB CONC 32.2 g/dl (32.0-36.5); PLATELET COUNT, AUTOMATED 240 10^3/uL (150-450); RED BLOOD COUNT 4.81 10^6/uL (4.00-5.40); WHITE BLOOD COUNT 10.4 10^3/uL (4.0-10.0)
[2022-01-05] MEDS ORDERED: OXYTOCIN DRIP 30 UNITS in IV 1 EA IV SCH (17:40)
[2022-01-05] MEDS: LR 1,000 ML IV SCH ×3 (18:05→23:38)
[2022-01-05] MEDS ORDERED: EPIDURAL/PCA KEYS XX PRN (21:30)
[2022-01-05] MEDS ORDERED: EPIDURAL COMMENT XX SCH (21:30)
[2022-01-05] MEDS ORDERED: diphenhydrAMINE 50MG/ML VIAL (J1200) IV PRN (21:30)
[2022-01-05] MEDS ORDERED: LACTATED RINGER'S 1000 ML IV PRN (21:30)
[2022-01-05] MEDS ORDERED: NALOXONE INJ 0.4MG/1ML VIAL (J2310 PER 1MG) IV PRN (21:30)
[2022-01-05] MEDS ORDERED: REFRIGERATOR IV KEYS XX PRN (21:30)
[2022-01-05] MEDS ORDERED: ePHEDrine SULFATE 25 MG/5 ML(5MG/ML) SYRINGE IV PRN (21:30)
[2022-01-05] MEDS ORDERED: ONDANSETRON 4MG/2ML VIAL IV PRN (21:30)
[2022-01-05] MEDS ORDERED: FENTANYL/ROPIVACAINE/NACL BAG 100 ML EPIDURAL SCH (21:30)
[2022-01-05] MEDS ORDERED: FENTANYL 2MCG/ML ROPIVACAINE 0.2% IN 0.9% NACL 100ML IVBAG As Ordered ONE (21:37)
[2022-01-05] MEDS ORDERED: DIBUCAINE 1% OINTMENT 30GM TOP PRN (23:05)
[2022-01-05] MEDS ORDERED: ANUSOL HC CREAM 30GM TOP PRN (23:05)
[2022-01-05] MEDS ORDERED: ACETAMINOPHEN 500 MG TAB PO PRN (23:05)
[2022-01-05] MEDS ORDERED: ACETAMINOPHEN TAB 650MG DOSE (2X325MG) PO PRN (23:05)
[2022-01-05] MEDS ORDERED: MOM 30ML SUSPENSION UDC PO PRN (23:05)
[2022-01-05] MEDS ORDERED: DOCUSATE SODIUM 100MG CAPSULE PO PRN (23:05)
[2022-01-05] MEDS ORDERED: RHOGAM 300 MCG (1500 IU) INJ (J2790) IM SCH (23:05)
[2022-01-05] MEDS ORDERED: MEASLES,MUMPS,RUBELLA VACCINE INJ (MMR-II) (90707) SC SCH (23:05)
[2022-01-05] MEDS ORDERED: METHYLERGONOVINE MALEATE 0.2 MG TAB PO PRN (23:05)
[2022-01-05] MEDS ORDERED: OXYTOCIN DRIP 30 UNITS in IV 1 EA IV ONE (23:05)
[2022-01-05] MEDS ORDERED: OXYTOCIN INJ 10 UNITS/ML VIAL (J2590) IV ONE (23:05)
[2022-01-05 23:09] LABS: CORD GAS ABE A -8.9; CORD GAS HCO3 A 22.9 MEQ/L; CORD GAS O2 SAT A 26.7 %; CORD GAS PCO2 A 77.7 mmHg; CORD GAS PH A 7.087 UNITS; CORD GAS PO2 A 22.8 mmHg; CORD GAS SBC A 15.9 MEQ/L; CORD GAS TCO2 A 25.3 MEQ/L
[2022-01-05 23:10] LABS: CORD GAS ABE V -8.5; CORD GAS HCO3 V 16.7 MEQ/L; CORD GAS O2 SAT V 80.4 %; CORD GAS PCO2 V 34.4 mmHg; CORD GAS PH V 7.304 UNITS; CORD GAS PO2 V 40.6 mmHg; CORD GAS SBC V 17.4 MEQ/L; CORD GAS TCO2 V 17.8 MEQ/L
[2022-01-06] VITALS (7 sets, daily range): BP systolic 109–133; BP diastolic 58–80
[2022-01-06 07:02] LABS: HEMATOCRIT 32.9 % (36.0-47.0); MEAN CORPUSCULAR HEMOGLOBIN 25.9 pg (27.0-33.0); MEAN CORPUSCULAR HGB CONC 31.6 g/dl (32.0-36.5); PLATELET COUNT, AUTOMATED 196 10^3/uL (150-450); RED BLOOD COUNT 4.01 10^6/uL (4.00-5.40)
[2022-01-06] MEDS: LR 1,000 ML IV SCH ×6 (07:05→23:05)
[2022-01-06 07:17] LABS: HEMOGLOBIN 10.4 g/dl (12.0-15.5)
[2022-01-06] MEDS: IBUPROFEN 600MG TAB PO PRN ×2 (08:00→19:07)
[2022-01-06] MEDS: PRENATAL VITAMINS CHEWABLE TABLET PO SCH (08:00)
[2022-01-07 06:00] VITALS: BP 120/72
[2022-01-07] MEDS ORDERED: ACET-683 PO (06:49)
[2022-01-07] MEDS ORDERED: IBUP-1022 PO (06:49)
[2022-01-07] MEDS: PRENATAL VITAMINS CHEWABLE TABLET PO SCH (07:55)
[2022-01-07] MEDS: LR 1,000 ML IV SCH ×4 (09:37→15:05)
[2022-01-07 18:03] VITALS: BP 135/91
== END 2022-01-07 19:35 | disposition home or self-care (01) | DRG 807 ==
LOC: M LDO 11:43 → M LDI 14:44 → M OBS 01-06 01:30
PROVIDERS: ADMIT Obstetrics & Gynecology; ATTEND Obstetrics & Gynecology
PROC: 10E0XZZ Delivery of Products of Conception, External Approach (ICD-10-PCS; principal; 2022-01-06)
DX: O48.0 Post-term pregnancy (principal); Z37.0 Single live birth; Z3A.40 40 weeks gestation of pregnancy; O69.81X0 Labor and delivery complicated by cord around neck, without compression, not applicable or unspecified

== ENCOUNTER 2022-04-09 21:00 | Emergency (ER) | payer OTHER ==
[~2022-04-09] VITALS: Ht 157.5 cm; Wt 78.2 kg
[~2022-04-09 21:00] MED LIST changes: +ACET-683 PO; +IBUP-1022 PO; +PSEU120T19 PO
[2022-04-09 21:45] LABS: HEMATOCRIT 38.7 % (36.0-47.0); HEMOGLOBIN 12.1 g/dl (12.0-15.5); MEAN CORPUSCULAR HEMOGLOBIN 25.6 pg (27.0-33.0); MEAN CORPUSCULAR HGB CONC 31.3 g/dl (32.0-36.5); PLATELET COUNT, AUTOMATED 375 10^3/uL (150-450); RED BLOOD COUNT 4.72 10^6/uL (4.00-5.40); WHITE BLOOD COUNT 10.1 10^3/uL (4.0-10.0)
[2022-04-09 22:07] LABS: BLOOD UREA NITROGEN 10 MG/DL (7-18); CALCIUM LEVEL 9.9 MG/DL (8.5-10.1); CARBON DIOXIDE LEVEL 25 MEQ/L (21-32); CHLORIDE LEVEL 111 MEQ/L (98-107); CREATININE FOR GFR 1.09 MG/DL (0.55-1.30); GLOMERULAR FILTRATION RATE > 60.0 (>60); GLUCOSE, FASTING 99 MG/DL (70-100); POTASSIUM SERUM 3.6 MEQ/L (3.5-5.1); SODIUM LEVEL 142 MEQ/L (136-145)
[2022-04-09 22:24] LABS: CK-MB VALUE MASS 1.8 NG/ML (<3.6); CPK CREATINE PHOSPHOKINASE 534 U/L (26-192); MB/CK RELATIVE INDEX 0.34 (< OR =4)
[2022-04-09 23:11] VITALS: BP 132/84
== END 2022-04-09 23:12 | disposition home or self-care (01) ==
LOC: EDBD 21:00 → M ED 21:00
DX: R07.89 Other chest pain (principal); T43.615A Adverse effect of caffeine, initial encounter; Z79.3 Long term (current) use of hormonal contraceptives

== ENCOUNTER 2022-10-02 12:21 | Inpatient (IN) | payer OTHER ==
[~2022-10-02] VITALS: Ht 157.5 cm; Wt 69.5 kg
[2022-10-02 15:59] LABS: BASO % 0.3 % (0.0-1.0); EOS # 0.3 10^3/uL (0.0-0.5); EOS % 3.3 % (0.0-3.0); HEMATOCRIT 42.5 % (36.0-47.0); HEMOGLOBIN 13.2 g/dl (12.0-15.5); LYMPH # 3.6 10^3/uL (1.5-5.0); LYMPH % 41.3 % (24.0-44.0); MEAN CORPUSCULAR HEMOGLOBIN 25.5 pg (27.0-33.0); MEAN CORPUSCULAR HGB CONC 31.1 g/dl (32.0-36.5); MONO # 0.5 10^3/uL (0.0-0.8); MONO % 5.5 % (2.0-8.0); NEUTROPHILS # 4.3 10^3/uL (1.5-8.5); NEUTROPHILS % 49.4 % (36.0-66.0); PLATELET COUNT, AUTOMATED 315 10^3/uL (150-450); RED BLOOD COUNT 5.18 10^6/uL (4.00-5.40); WHITE BLOOD COUNT 8.7 10^3/uL (4.0-10.0)
[2022-10-02 16:29] LABS: BLOOD UREA NITROGEN 11 MG/DL (7-18); CALCIUM LEVEL 9.3 MG/DL (8.5-10.1); CARBON DIOXIDE LEVEL 28 MEQ/L (21-32); CHLORIDE LEVEL 110 MEQ/L (98-107); CREATININE FOR GFR 0.92 MG/DL (0.55-1.30); GLOMERULAR FILTRATION RATE > 60.0 (>60); GLUCOSE, FASTING 88 MG/DL (70-100); HCG, SERUM QUANTITATIVE < 1.0 MIU/ML; MAGNESIUM LEVEL 2.2 MG/DL (1.8-2.4); POTASSIUM SERUM 4.5 MEQ/L (3.5-5.1); SODIUM LEVEL 142 MEQ/L (136-145)
[2022-10-02] MEDS ORDERED: ISOVUE-370 76% 100ML VIAL As Ordered ONE (18:08)
[2022-10-02 19:57] LABS: CK-MB VALUE MASS 1.2 NG/ML (<3.6); MB/CK RELATIVE INDEX 0.63 (< OR =4)
[2022-10-02 21:49] LABS: FREE T4 1.14 NG/DL (0.76-1.46)
[2022-10-03] MEDS ORDERED: HOME MED LIST COMPLETE! XX SCH (00:40)
[2022-10-03] MEDS ORDERED: ULTRACET TAB PO PRN ×2 (03:10→18:20)
[2022-10-03] MEDS ORDERED: ONDANSETRON 4MG 2ML VIAL IV PRN (03:10)
[2022-10-03] MEDS ORDERED: LIDOCAINE 1% MDV 20ML VIAL As Ordered ONE (14:52)
[2022-10-03 15:42] VITALS: BP 122/58
[2022-10-03 20:00] VITALS: BP 115/62
[2022-10-04] VITALS: BP 108/58
[2022-10-04 04:00] VITALS: BP 121/59
[2022-10-04 07:25] VITALS: BP 106/68
[2022-10-04 11:53] VITALS: BP 120/61
[2022-10-04] MEDS ORDERED: ISOVUE-370 76% 100ML VIAL As Ordered ONE (12:47)
[2022-10-05 14:08] LABS: THRYOGLOBULIN ANTIBODIES (ATA) < 1.0 IU/mL (0.0-0.9); THYROGLOBULIN QUANTITATIVE 368.3 ng/mL (1.5-38.5); TSH RECEPTOR ASSAY <1.10 IU/L (0.00-1.75)
== END 2022-10-04 14:25 | disposition home or self-care (01) | DRG 310 ==
LOC: M ED 12:21 → M ED INP 10-03 03:06 → ENRESERV 10-03 14:20 → M PCU 10-03 15:24
PROVIDERS: ADMIT Internal Medicine; ATTEND Internal Medicine
PROC: BW2FYZZ Computerized Tomography (CT Scan) of Neck using Other Contrast (ICD-10-PCS; 2022-10-02)
PROC: B246ZZZ Ultrasonography of Right and Left Heart (ICD-10-PCS; 2022-10-03)
PROC: 0G9G3ZX Drainage of Left Thyroid Gland Lobe, Percutaneous Approach, Diagnostic (ICD-10-PCS; principal; 2022-10-03 15:00)
DX: R00.1 Bradycardia, unspecified (principal); G43.909 Migraine, unspecified, not intractable, without status migrainosus; E04.2 Nontoxic multinodular goiter; Z20.822 Contact with and (suspected) exposure to COVID-19